=== PATIENT | male | born 1940 | race Caucasian/White ===

== ENCOUNTER 2019-01-31 13:37 | Emergency (ER) | payer OTHER ==
[~2019-01-31] VITALS: Ht 177.8 cm; Wt 68.0 kg
[2019-01-31 14:16] VITALS: BP 115/60
== END 2019-01-31 14:58 | disposition home or self-care (01) ==
LOC: ER 13:37
DX: S60.450A Superficial foreign body of right index finger, initial encounter (principal); Z88.0 Allergy status to penicillin; W31.89XA Contact with other specified machinery, initial encounter; Y93.89 Activity, other specified; Y92.096 Garden or yard of other non-institutional residence as the place of occurrence of the external cause; Y99.8 Other external cause status
CPT/HCPCS: 73140